=== PATIENT | female | born 1960 | race Caucasian/White ===

== ENCOUNTER → 2018-08-30 | Outpatient (CLI) | payer BC, OTHER ==
[~2018-08-30] MED LIST: DIAZ5 PO; ESTMEDA PO; LEVSOD88 PO; NAPR550 PO; OXYACE5T PO; RXNAPNA550 PO
== END | disposition home or self-care (01) ==
LOC: LAB SHORT 16:16 → LAB 16:16
PROVIDERS: Hospitalist
DX: Z12.4 Encounter for screening for malignant neoplasm of cervix (principal)
CPT/HCPCS: G0145

== ENCOUNTER 2019-01-28 07:27 | Day surgery (SDC) | payer BC ==
[~2019-01-28] VITALS: Ht 177.8 cm; Wt 180.0 kg
[~2019-01-28 07:27] MED LIST changes: +Fish Oil 10001000 MG PO; +ROSU5 PO; +VITAMIN D35000 UNI1 PO
--- NOTE | 2019-01-28 10:54 | NUR ---
01/28/19 1054 Tracie Garcia DELAYED ENTRY 1015 RN CALLED AND INFORMED PT THAT DC INSTRUCTIONS WERE LEFT IN ROOM AND OFFERED TO LEAVE THEM AT THE [facility] TO GATEKEEPER OR TO BE MAILED. PT STATED RN CAN DISPOSE OF THEM PROPERLY.
== END 2019-01-28 09:58 | disposition home or self-care (01) ==
LOC: ORSCSDS 07:27
PROVIDERS: Student in an Organized Health Care Education/Training Program
PROC: 0DBL8ZX Excision of Transverse Colon, Via Natural or Artificial Opening Endoscopic, Diagnostic (ICD-10-PCS; principal; 2019-01-28 09:00)
PROC: 0DBN8ZX Excision of Sigmoid Colon, Via Natural or Artificial Opening Endoscopic, Diagnostic (ICD-10-PCS; principal; 2019-01-28 09:00)
DX: Z12.11 Encounter for screening for malignant neoplasm of colon (principal); D12.3 Benign neoplasm of transverse colon; K57.30 Diverticulosis of large intestine without perforation or abscess without bleeding; K64.8 Other hemorrhoids; K64.4 Residual hemorrhoidal skin tags; E03.9 Hypothyroidism, unspecified; E78.5 Hyperlipidemia, unspecified; Z79.899 Other long term (current) drug therapy
CPT/HCPCS: 88305; J0330; J0461; J2405; J2704; J7120

== ENCOUNTER → 2020-05-12 | Outpatient (CLI) | payer BC | END | disposition home or self-care (01) | LOC: LAB SHORT 10:49 → PLD 10:49 | DX: L73.9 Follicular disorder, unspecified (principal); L57.8 Other skin changes due to chronic exposure to nonionizing radiation | CPT/HCPCS: 88305 ==

== ENCOUNTER → 2023-01-12 | Outpatient (CLI) | payer BC | LOC: LAB 08:45 → LAB SHORT 08:45 | PROVIDERS: Hospitalist | DX: Z12.4 Encounter for screening for malignant neoplasm of cervix (principal) | CPT/HCPCS: G0145 ==

== ENCOUNTER 2025-03-17 09:45 | Day surgery (SDC) | payer MEDICARE, BC ==
[~2025-03-17] VITALS: Ht 177.8 cm; Wt 79.0 kg
[2025-03-17] MEDS ORDERED: CYMBALTA30 M2 (09:57)
[2025-03-17] MEDS ORDERED: EUTHYROX88 MC1 (09:57)
[2025-03-17] MEDS ORDERED: Lidocaine HCl 2% Jelly 120MG/6ML SYR (20MG PER ML) ONE (11:03)
[2025-03-17 11:58] VITALS: BP 123/82
== END 2025-03-17 12:04 | disposition home or self-care (01) ==
LOC: ORSCSDS 09:45
PROVIDERS: Specialist
PROC: 0DBK8ZX Excision of Ascending Colon, Via Natural or Artificial Opening Endoscopic, Diagnostic (ICD-10-PCS; principal; 2025-03-17 11:00)
DX: Z12.11 Encounter for screening for malignant neoplasm of colon (principal); D12.2 Benign neoplasm of ascending colon; K64.4 Residual hemorrhoidal skin tags; K64.8 Other hemorrhoids; K57.30 Diverticulosis of large intestine without perforation or abscess without bleeding; Z86.0101 Personal history of adenomatous and serrated colon polyps; E07.9 Disorder of thyroid, unspecified; Z79.899 Other long term (current) drug therapy
CPT/HCPCS: 88305; A9270; J2704; J7120